=== PATIENT | female | born 1970 | race Caucasian/White ===

== ENCOUNTER 2018-08-23 09:18 | Day surgery (SDC) | payer BC ==
--- NOTE | 2018-08-23 06:34 | History and Physical - [place] ---
CHIEF COMPLAINT/HISTORY OF CHIEF COMPLAINT: This patient presents with a history of an intractable lumbar radiculopathy. Due to the failure of all therapies, a spinal cord stimulator trial was conducted on 07/18/18 with 75-85% pain control. Due to the failure of all therapy and the success of the trial, the patient presents today for implantation of a permanent system. PAST MEDICAL HISTORY: Chronic headaches and bladder dysfunction. PAST SURGICAL HISTORY: Hand surgery, gastric bypass, gallbladder surgery, and ophthalmologic surgery. EMPLOYMENT STATUS: Full-time worker. MEDICATIONS ON ADMISSION: List to be provided. ALLERGIES: PENICILLIN AND SULFA. FAMILY/PSYCHOSOCIAL HISTORY: Social history - Social alcohol and caffeine. Family history - Asthma, diabetes, coronary artery disease, hypertension, and cancer. SYSTEMS REVIEW: The patient is appropriate in no acute distress. The remainder of the systems review is positive for glasses, depression, and difficulty sleeping. PHYSICAL EXAMINATION: No height and weight. Vital signs are not available. HEENT: Within normal limits. LUNGS: Clear. HEART: Rapid and regular. ABDOMEN: Nontender. MUSCULOSKELETAL: Examination of the musculoskeletal system shows the primary pain to be across the back and extending into the legs bilaterally. There doesn 't appear to be any motor or sensory field abnormalities, simply pain extending along a L5-S1 or perhaps a L4-L5 distribution. Ambulation - No assistive device utilized. NEUROLOGIC: Cranial nerves are intact. IMPRESSION: LUMBAR RADICULOPATHY, ICD-10 CODE M54.16 AND M54.17. PLAN: The patient is here for a permanent spinal cord stimulator implant after a successful trial and the failure of all other therapies. The procedure has been explained, reviewed and discussed. The potential risks, side effects, and complications have been reviewed and discussed. Information from the [employer] provided. Direct contact with a clinical specialist from the company have been made and questions answered. The procedure will be considered outpatient although an overnight stay may be evaluated. JOB NUMBER: [id number] [facility]
[~2018-08-23 09:18] MED LIST: ACETAMINOPHEN 1,000 MG/100 ML BTL IV ONE; CLINDAMYCIN PHOS/D5W 900MG 900 MG/50 ML BAG IVPB ONE; FAMOTIDINE 20MG TABLET PO ONE; MECLIZINE 25 MG TABLET PO ONE; METOCLOPRAMIDE 10 MG TABLET PO ONE
[2018-08-23] MEDS ORDERED: Clindamycin 600mg vial 150 MG/ML VIAL IVPB ONE (09:19)
[2018-08-23] MEDS ORDERED: PROPOFOL 10 MG/ML VIAL IV ONE (09:19)
[2018-08-23] MEDS ORDERED: KETAMINE HCL 100MG/1ML VIAL INJ ONE (09:19)
[2018-08-23] MEDS ORDERED: BUPIVACAINE 0.5% W/EPI MPF 30 ML VIAL IVP ONE (09:19)
[2018-08-23] MEDS ORDERED: FENTANYL PF 100MCG/2ML VIAL IV ONE (09:19)
[2018-08-23] MEDS ORDERED: LIDOCAINE 1% W/EPI 1:200,000 MPF 30ML SQ ONE (09:19)
[2018-08-23] MEDS ORDERED: HYDROCODONE/APAP 7.5/325MG TABLET PO ONE (09:19)
[2018-08-23] MEDS ORDERED: LIDOCAINE 2% MDV (20MG/ML) 20ML VIAL IV ONE (09:19)
[2018-08-23] MEDS ORDERED: MIDAZOLAM HCL 2MG/2ML VIAL IV ONE (09:19)
[2018-08-23] MEDS ORDERED: ONDANSETRON HCL IV 4 MG/2 ML VIAL IVP ONE (09:19)
--- NOTE | 2018-08-25 14:43 | Operative Note ---
DATE: 08/23/2018. PRIMARY CARE PHYSICIAN: Brittany Ko M.D. PREOPERATIVE DIAGNOSIS: LUMBAR RADICULOPATHY, ICD-10 CODE M54.16 AND M54.17. POSTOPERATIVE DIAGNOSIS: LUMBAR RADICULOPATHY, ICD-10 CODE M54.16 AND M54.17. ANESTHESIA: Local sedation. ANESTHESIA PROVIDER: Svitlana Miller CRNA. PROCEDURES: 1. Fluoroscopically guided left epidural access at T11-12. Placement of spinal cord stimulator lead 1, a [employer]ineon 16 with 16 electrodes, positioned left T7. 2. Fluoroscopically guided left epidural access at T12-L1. Placement of spinal cord stimulator lead 2, a [employer]ineon 16 with 16 electrodes, positioned right T7. 3. Complex programming of lead 1 over 20 minutes followed by complex programming of lead 2 over 20 minutes. 4. Incision, subcutaneous dissection, and anchoring of leads 1 and 2 to the supraspinous fascia with a [employer] locking anchor and nonabsorbable suture. 5. Incision, subcutaneous dissection, and creation of subcutaneous pouch at the right posterior gluteal margin, the site picked by the patient for the generator, for placement of generator identified as a [employer] programmable rechargeable WaveWriter generator. 6. Tunnelling between lead pouch and generator pouch with placement of leads tunneled into generator pouch and interfaced to the generator. 7. Placement of generator into pouch. Placement of leads into the pouch. 8. Closure of both incisions using Stratafix suture; #2-0 for the fascia and #3 -0 for the skin. Dermabond closure. 9. Complex recovery room programming of the internal generator for home use, two stimulators, for 20 minutes. SURGEON: Benito Wray D.O. INDICATIONS: This patient presents with a history of an intractable lumbar radiculopathy. Due to the failure of all therapies, a spinal cord stimulator trial was conducted with 75 to 85 percent pain control. Due to the failure of all therapies and the success of the trial, the patient presents for implantation of a permanent system. DESCRIPTION OF PROCEDURE: Intravenous lines, vital sign monitoring, and intravenous sedation. Prepped and draped with sterile technique with the patient positioned prone. Local for infiltration. Under imaging the epidural interspaces at T11-12 and T12-L1 were both marked on the left. The skin was infiltrated. Using two separate curved access Epimed needles with loss of resistance the space was accessed. Atraumatic; no blood, no cerebrospinal fluid. At 11-12, spinal cord stimulator lead 1, a [employer] Infineon 16 with 16 electrodes, was advanced left of the midline and positioned at the the upper electrode at T7. With the access at 12-1, spinal cord stimulator lead 2, also a [employer] Infineon 16 with 16 electrodes, was positioned right of the midline at T7. Complex programming of lead 1 over 20 minutes was followed by complex programming of lead 2 over 20 minutes. This resulted in complete patterns of stimulation across the back and into the legs. The patient indicated we were in all of the areas of the pain. She was then given the options to implant, continue to program, or remove. She opted to implant. The questions were repeated with the same response. The skin below both needles was then infiltrated with local. An incision was made, and subcutaneous dissection was conducted to the supraspinous fascia. The needles were removed and then each lead was anchored to the supraspinous fascia with a [employer] locking anchor. Antibiotic irrigation and Bovie for hemostasis. At the right posterior gluteal margin, the site picked by the patient for the generator, the skin was infiltrated. An incision was made and subcutaneous dissection was conducted to form a pouch of suitable size and depth for the generator, a [employer] programmable rechargeable WaveWriter generator. A tunneling tool was then used to carry the leads into the generator pouch, and then each lead was interfaced to the generator. Antibiotic irrigation and Bovie for hemostasis. The generator was placed into the pouch and the leads were placed into their own pouch. Both incisions were then closed using Stratafix suture; #2-0 for the fascia and #3-0 for the skin. Dermabond closure was then used to approximate the edges of both wounds. She was transported to the recovery room stable with no side effects from the procedure or the sedation. She had full functionality of the extremities. There was nothing unusual; no abnormal pain patterns. She was requesting discharge home. The patient's was fully instructed and informed as to the procedure. DISCHARGE INSTRUCTIONS: 1. The sites are to remain clean and dry. Although the Dermabond will allow showering, she should not sit in water or takes baths. 2. Standard medications to be resumed including the antibiotic Levaquin 500 mg once a day for 14 days. 3. The office will contact the patient in 12 to 24 hours to set up a time in 7 to 10 days for us to evaluate the sites. Until then her activities should stay controlled. 4. All other instructions were provided including numbers to contact with problems. JOB NUMBER: [id number] cc: Bailey Delgado
--- NOTE | 2018-08-26 22:05 | RADIOLOGY REPORT ---
EXAM: SPINE, 1 VIEW HISTORY: STATUS POST SPINAL CORD STIMULATOR IMPLANT. TECHNIQUE: A single frontal view of the thoracolumbar spine. COMPARISON: None. FINDINGS: Spinal stimulator device leads project over the T7 through T9 vertebral bodies. A generator device superimposes the right lower abdomen. For additional details, please refer to the operative report. IMPRESSION: ABOVE. JOB NUMBER: [id number] [facility]
== END 2018-08-23 12:50 | disposition home or self-care (01) ==
LOC: SUR 09:18
PROVIDERS: ATTEND Pain Medicine Interventional Pain Medicine
DX: M54.16 Radiculopathy, lumbar region (principal); M54.17 Radiculopathy, lumbosacral region; E78.00 Pure hypercholesterolemia, unspecified; F98.8 Other specified behavioral and emotional disorders with onset usually occurring in childhood and adolescence; Z85.89 Personal history of malignant neoplasm of other organs and systems
CPT/HCPCS: 63650; 63685; 01936; 95972; 81025; 72020; J2405; J3010; J3490 ×2; C1820; C1883